=== PATIENT | female | born 1940 | race Caucasian/White ===

== ENCOUNTER 2021-11-12 21:14 | Observation (INO) | payer MEDICARE, OTHER ==
[2021-11-12 22:12] LABS: #Eosinphils 0.1 10x3/uL (0.0-0.5); #Monocytes 0.6 10x3/uL (0.0-1.1); #Neutrophils 4.5 10x3/uL (1.5-8.4); %Basophils 0.3 % (0.0-2.0); %Eosinophils 1.1 % (0.0-6.0); %Lymphocytes 15.6 % (18.0-47.0); %Neutrophils 73.8 % (40.0-75.0); Hemoglobin 12.6 g/dL (12.0-15.5); Mean Corpuscular HGB CONC 34.3 g/dL (32.0-36.0); Mean Corpuscular Hemoglobin 32.6 pg (27.0-33.0); Mean Corpuscular Volume 94.8 fl (81.6-98.3); Mean Platelet Volume 9.5 fl (7.4-10.4); Platelet Count 260 10x3/uL (150-450); RBC Distribution Width 13.3 % (11.5-14.5); Red Blood Cell (RBC) Count 3.87 10x6/uL (3.90-5.03); White Blood Cell (WBC) Count 6.1 10x3/uL (3.5-10.5)
[2021-11-12 22:20] LABS: ALT (SGPT) 29 U/L (8-55); AST (SGOT) 33 U/L (5-34); Albumin 4.5 g/dL (3.4-4.8); Alkaline Phosphatase 83 U/L (40-110); Anion Gap 19 mmol/L (10-20); BUN (Urea Nitrogen) 24 mg/dL (9.8-20.1); Bilirubin, Total 0.2 mg/dL (0.2-1.2); Calc. Creatinine Clearance 0 mL/min (70-130); Calcium 9.3 mg/dL (7.8-10.44); Carbon Dioxide 26 mmol/L (23-31); Chloride 95 mmol/L (98-107); Globulin 2.3 g/dL (2.4-3.5); Glucose 100 mg/dL (83-110); Protein, Total 6.8 g/dL (5.8-8.1); Sodium 136 mmol/L (136-145)
[2021-11-12 22:58] LABS: Bilirubin Neg (Negative); Blood, Urine 10 (Negative); Clarity Cloudy (Clear); Glucose, Urine (Dipstick) Normal (Negative); Ketone, Urine Negative (Negative); Leukocyte 500 (Negative); Nitrite Positive (Negative); Protein, Urine (Dipstick) 15 mg/dl (Neg-Trace); Urobilinogen Normal mg/dL (Less than 2); pH, Urine 6.5 (5.0-9.0)
[2021-11-12 23:04] LABS: Bacteria/HPF 4+ HPF (None Seen); RBC/HPF 0-3 HPF (0-3); Squamous Epithelial 0-3 HPF (0-3)
[2021-11-12] MEDS ORDERED: cefTRIAXone\\ROCEPHIN 1 GM VIAL ONE (23:56)
[2021-11-13] MEDS ORDERED: Calcium Carbonate 500 MG ChewTAB PO PRN (01:36)
[2021-11-13] MEDS ORDERED: Acetaminophen 325 MG TAB PO PRN (01:36)
[2021-11-13] MEDS ORDERED: Ondansetron ODT 4 MG TAB PO PRN (01:36)
[2021-11-13] MEDS ORDERED: Milk Of Magnesia 30 ML UDCUP PO PRN (01:36)
[2021-11-13] MEDS ORDERED: Ondansetron PF 4 MG/2 ML Vial IVP PRN (01:36)
[2021-11-13 01:49] LABS: Magnesium 1.8 mg/dL (1.6-2.6)
[2021-11-13 01:56] VITALS: BMI 16.2
[2021-11-13 01:56] LABS: Troponin I Less than 0.010 ng/mL (< 0.028)
[2021-11-13] MEDS: Sodium Chloride 0.9% 1,000 ML IV SCH ×2 (02:20→14:43)
[2021-11-13 02:57] LABS: Lactic Acid 0.8 mmol/L (0.5-2.2)
[2021-11-13 03:29] LABS: SARS-CoV-2 NAA Rapid Test Not Detected (NotDetected)
[2021-11-13 05:17] LABS: #Eosinphils 0.1 10x3/uL (0.0-0.5); #Monocytes 0.6 10x3/uL (0.0-1.1); #Neutrophils 2.7 10x3/uL (1.5-8.4); %Basophils 0.6 % (0.0-2.0); %Eosinophils 2.5 % (0.0-6.0); %Lymphocytes 26.5 % (18.0-47.0); %Monocytes 13.3 % (0.0-10.0); %Neutrophils 56.7 % (40.0-75.0); Hemoglobin 11.1 g/dL (12.0-15.5); Mean Corpuscular HGB CONC 33.7 g/dL (32.0-36.0); Mean Corpuscular Hemoglobin 32.1 pg (27.0-33.0); Mean Corpuscular Volume 95.1 fl (81.6-98.3); Mean Platelet Volume 9.2 fl (7.4-10.4); Platelet Count 214 10x3/uL (150-450); RBC Distribution Width 13.6 % (11.5-14.5); Red Blood Cell (RBC) Count 3.46 10x6/uL (3.90-5.03); White Blood Cell (WBC) Count 4.8 10x3/uL (3.5-10.5)
[2021-11-13 05:52] LABS: Anion Gap 12 mmol/L (10-20); BUN (Urea Nitrogen) 20 mg/dL (9.8-20.1); Calc. Creatinine Clearance 44 mL/min (70-130); Calcium 7.8 mg/dL (7.8-10.44); Carbon Dioxide 21 mmol/L (23-31); Chloride 108 mmol/L (98-107); Glucose 89 mg/dL (83-110); Potassium 4.2 mmol/L (3.5-5.1); Sodium 137 mmol/L (136-145)
[2021-11-13] MEDS ORDERED: BIOTIN 5 MG PO SCH (09:00)
[2021-11-13] MEDS ORDERED: Primidone 50 MG TAB PO SCH (09:00)
[2021-11-13] MEDS ORDERED: Gabapentin 100 MG CAP PO SCH (09:00)
[2021-11-13] MEDS ORDERED: Enoxaparin Sodium 30 MG/0.3 ML SYRINGE SC SCH (09:00)
[2021-11-13] MEDS ORDERED: Doxazosin 2 MG TAB PO SCH (09:00)
[2021-11-13 16:37] VITALS: BP 146/66; TEMP 98.3
[2021-11-13] MEDS ORDERED: Temazepam 15 MG CAP PO SCH (21:00)
[2021-11-13] MEDS ORDERED: Donepezil HCl 5 MG TAB PO SCH (21:00)
[2021-11-13] MEDS ORDERED: Gabapentin 300 MG CAP PO SCH (21:00)
[2021-11-13] MEDS ORDERED: Amitriptyline HCl 25 MG TAB PO SCH (21:00)
[2021-11-13] MEDS ORDERED: cefTRIAXone\\ROCEPHIN 1 GM in Sodium Chloride 0.9% 100 ML IVPB SCH (23:59)
== END 2021-11-13 18:15 | disposition home or self-care (01) ==
LOC: CSHERS 21:14 → CSHTELE 11-13 01:50
PROVIDERS: ADMIT Family Medicine; ATTEND Hospitalist
DX: R55 Syncope and collapse (principal); F03.90 Unspecified dementia, unspecified severity, without behavioral disturbance, psychotic disturbance, mood disturbance, and anxiety; Z79.899 Other long term (current) drug therapy; Z87.891 Personal history of nicotine dependence; N39.0 Urinary tract infection, site not specified; G25.0 Essential tremor; F51.04 Psychophysiologic insomnia; N18.4 Chronic kidney disease, stage 4 (severe); Z92.25 Personal history of immunosuppression therapy; L30.9 Dermatitis, unspecified; Z20.822 Contact with and (suspected) exposure to COVID-19
CPT/HCPCS: 80048; 80053; 83605 ×2; 83735; 84484 ×2; 85025 ×2; 87040; 87077; 87086; 87186; 93005 ×2; 93306; 96365; 97139; 99285; U0002; 36415; 81003; 81015; 93010; 96372; G0378; J0696; J1650; J7050

== ENCOUNTER 2022-01-27 18:38 | Inpatient (IN) | payer MEDICARE, OTHER ==
[~2022-01-27 18:38] MED LIST: Iopamidol 300 61% 100 ML VIAL FS ONE
[2022-01-27 19:32] LABS: #Monocytes 1.6 10x3/uL (0.0-1.1); #Neutrophils 10.2 10x3/uL (1.5-8.4); %Basophils 0.2 % (0.0-2.0); %Eosinophils 0.3 % (0.0-6.0); %Lymphocytes 5.9 % (18.0-47.0); %Monocytes 12.3 % (0.0-10.0); %Neutrophils 80.9 % (40.0-75.0); Hemoglobin 12.5 g/dL (12.0-15.5); Mean Corpuscular HGB CONC 34.9 g/dL (32.0-36.0); Mean Corpuscular Hemoglobin 31.9 pg (27.0-33.0); Mean Corpuscular Volume 91.3 fl (81.6-98.3); Mean Platelet Volume 9.6 fl (7.4-10.4); Platelet Count 272 10x3/uL (150-450); RBC Distribution Width 12.6 % (11.5-14.5); Red Blood Cell (RBC) Count 3.92 10x6/uL (3.90-5.03); White Blood Cell (WBC) Count 12.6 10x3/uL (3.5-10.5)
[2022-01-27 19:45] LABS: ALT (SGPT) 21 U/L (8-55); AST (SGOT) 29 U/L (5-34); Albumin 3.8 g/dL (3.4-4.8); Alkaline Phosphatase 68 U/L (40-110); Anion Gap 13 mmol/L (10-20); BUN (Urea Nitrogen) 15 mg/dL (9.8-20.1); Bilirubin, Total 0.4 mg/dL (0.2-1.2); Calc. Creatinine Clearance 0 mL/min (70-130); Calcium 8.6 mg/dL (7.8-10.44); Carbon Dioxide 29 mmol/L (23-31); Chloride 93 mmol/L (98-107); Estimated GFR 82; Globulin 1.8 g/dL (2.4-3.5); Glucose 118 mg/dL (83-110); Lipase 52 U/L (8-78); Potassium 3.7 mmol/L (3.5-5.1); Protein, Total 5.6 g/dL (5.8-8.1); Sodium 131 mmol/L (136-145)
[2022-01-27 19:57] LABS: Bilirubin Neg (Negative); Blood, Urine 250 (Negative); Clarity Slightly Cloudy (Clear); Glucose, Urine (Dipstick) Normal (Negative); Ketone, Urine 15 mg/dL (Negative); Leukocyte 500 (Negative); Nitrite Negative (Negative); Protein, Urine (Dipstick) 100 mg/dl (Neg-Trace); Specific Gravity, Urine 1.015 (1.002-1.036); Urobilinogen Normal mg/dL (Less than 2)
[2022-01-27 20:06] LABS: Bacteria/HPF 4+ HPF (None Seen); Mucous/LPF 1+ LPF (<2+); Squamous Epithelial 0-3 HPF (0-3); Transitional Epithelial 0-3 HPF (None Seen); WBC/HPF Greater than 50 HPF (0-3)
[2022-01-27] MEDS ORDERED: Cefepime 2 GM VIAL ONE (20:41)
[2022-01-27] MEDS ORDERED: Sodium Chloride 0.9% 1,000 ML IV SCH (23:45)
[2022-01-27] MEDS ORDERED: Guaifenesin DM 100-10/5 ML UDCUP PO PRN (23:46)
[2022-01-27] MEDS ORDERED: Senokot S 8.6-50 MG TAB PO PRN (23:46)
[2022-01-27] MEDS ORDERED: Ondansetron PF 4 MG/2 ML Vial IVP PRN (23:46)
[2022-01-27] MEDS ORDERED: Acetaminophen 325 MG TAB PO PRN (23:46)
[2022-01-27] MEDS ORDERED: Calcium Carbonate 500 MG ChewTAB PO PRN (23:46)
[2022-01-27] MEDS ORDERED: Primidone 50 MG TAB PO SCH (23:59)
[2022-01-27] MEDS ORDERED: Amitriptyline HCl 25 MG TAB PO SCH (23:59)
[2022-01-28] MEDS ORDERED: Potassium Chloride 20 MEQ TAB PO SCH (00:15)
[2022-01-28] MEDS ORDERED: Temazepam 15 MG CAP PO SCH ×2 (00:15→21:00)
[2022-01-28] MEDS ORDERED: Potassium Chloride 20 MEQ TAB ONE (00:31)
[2022-01-28] MEDS ORDERED: Metoprolol Tartrate 25 MG TAB ONE (01:26)
[2022-01-28 03:55] LABS: #Monocytes 1.3 10x3/uL (0.0-1.1); #Neutrophils 8.2 10x3/uL (1.5-8.4); %Basophils 0.3 % (0.0-2.0); %Eosinophils 0.2 % (0.0-6.0); %Lymphocytes 7.2 % (18.0-47.0); %Monocytes 12.6 % (0.0-10.0); %Neutrophils 79.4 % (40.0-75.0); Hemoglobin 11.4 g/dL (12.0-15.5); Mean Corpuscular HGB CONC 35.5 g/dL (32.0-36.0); Mean Corpuscular Hemoglobin 32.4 pg (27.0-33.0); Mean Corpuscular Volume 91.2 fl (81.6-98.3); Mean Platelet Volume 9.5 fl (7.4-10.4); Platelet Count 224 10x3/uL (150-450); RBC Distribution Width 12.6 % (11.5-14.5); Red Blood Cell (RBC) Count 3.52 10x6/uL (3.90-5.03); White Blood Cell (WBC) Count 10.3 10x3/uL (3.5-10.5)
[2022-01-28 03:57] LABS: Anion Gap 12 mmol/L (10-20); BUN (Urea Nitrogen) 10 mg/dL (9.8-20.1); Calc. Creatinine Clearance 0 mL/min (70-130); Calcium 8.1 mg/dL (7.8-10.44); Carbon Dioxide 24 mmol/L (23-31); Chloride 101 mmol/L (98-107); Estimated GFR 91; Glucose 108 mg/dL (83-110); Magnesium 1.8 mg/dL (1.6-2.6); Potassium 3.8 mmol/L (3.5-5.1); Sodium 133 mmol/L (136-145)
[2022-01-28] MEDS ORDERED: BIOTIN 5 MG PO SCH (09:00)
[2022-01-28] MEDS ORDERED: Thiamine 100 MG TAB ONE (09:25)
[2022-01-28] MEDS ORDERED: Enoxaparin Sodium 40 MG/0.4 ML SYRINGE ONE (09:26)
[2022-01-28] MEDS ORDERED: Folic Acid 1 MG TAB ONE (09:26)
[2022-01-28] MEDS ORDERED: cefTRIAXone\\ROCEPHIN 2 GM VIAL ONE ×2 (09:26→09:38)
[2022-01-28] MEDS: cefTRIAXone\\ROCEPHIN 2 GM in Sodium Chloride 0.9% 100 ML IVPB SCH (09:41)
[2022-01-28] MEDS: Enoxaparin Sodium 40 MG/0.4 ML SYRINGE SC SCH (09:41)
[2022-01-28] MEDS: Doxazosin 2 MG TAB PO SCH (09:41)
[2022-01-28] MEDS: Gabapentin 100 MG CAP PO SCH (09:42)
[2022-01-28] MEDS: Folic Acid 1 MG TAB PO SCH (09:42)
[2022-01-28] MEDS: pyridOXINE 50 MG (B6) TAB PO SCH (09:42)
[2022-01-28] MEDS: Thiamine 100 MG TAB PO SCH (09:42)
[2022-01-28 12:58] VITALS: BMI 18.0
[2022-01-28] MEDS: Primidone 50 MG TAB PO SCH ×2 (18:19→20:46)
[2022-01-28] MEDS ORDERED: Amitriptyline HCl 25 MG TAB PO SCH (21:00)
[2022-01-28] MEDS ORDERED: Gabapentin 300 MG CAP PO SCH (21:00)
[2022-01-28] MEDS ORDERED: Donepezil HCl 5 MG TAB PO SCH (21:00)
[2022-01-29 04:25] LABS: #Eosinphils 0.1 10x3/uL (0.0-0.5); #Monocytes 0.7 10x3/uL (0.0-1.1); #Neutrophils 4.1 10x3/uL (1.5-8.4); %Basophils 0.5 % (0.0-2.0); %Lymphocytes 17.9 % (18.0-47.0); %Monocytes 12.2 % (0.0-10.0); %Neutrophils 67.7 % (40.0-75.0); Hemoglobin 11.1 g/dL (12.0-15.5); Mean Corpuscular HGB CONC 33.9 g/dL (32.0-36.0); Mean Corpuscular Hemoglobin 31.8 pg (27.0-33.0); Mean Corpuscular Volume 93.7 fl (81.6-98.3); Mean Platelet Volume 9.5 fl (7.4-10.4); Platelet Count 245 10x3/uL (150-450); RBC Distribution Width 12.5 % (11.5-14.5); Red Blood Cell (RBC) Count 3.49 10x6/uL (3.90-5.03)
[2022-01-29 04:29] LABS: Anion Gap 10 mmol/L (10-20); BUN (Urea Nitrogen) 11 mg/dL (9.8-20.1); Calc. Creatinine Clearance 56 mL/min (70-130); Calcium 8.4 mg/dL (7.8-10.44); Carbon Dioxide 26 mmol/L (23-31); Chloride 102 mmol/L (98-107); Estimated GFR 91; Glucose 91 mg/dL (83-110); Sodium 134 mmol/L (136-145)
[2022-01-29] MEDS: cefTRIAXone\\ROCEPHIN 2 GM in Sodium Chloride 0.9% 100 ML IVPB SCH (09:37)
[2022-01-29] MEDS: Gabapentin 100 MG CAP PO SCH (09:37)
[2022-01-29] MEDS: Enoxaparin Sodium 40 MG/0.4 ML SYRINGE SC SCH (09:37)
[2022-01-29] MEDS: Folic Acid 1 MG TAB PO SCH (09:38)
[2022-01-29] MEDS: pyridOXINE 50 MG (B6) TAB PO SCH (09:38)
[2022-01-29] MEDS: Thiamine 100 MG TAB PO SCH (09:38)
[2022-01-29] MEDS: Doxazosin 2 MG TAB PO SCH (11:20)
[2022-01-29 15:44] VITALS: BP 136/64; TEMP 98.4
== END 2022-01-29 12:52 | disposition home or self-care (01) | DRG 871 ==
LOC: CSHERS 18:38 → CSHERHOLD 23:53 → CSHTELE 01-28 13:04
PROVIDERS: ADMIT Student in an Organized Health Care Education/Training Program; ATTEND Internal Medicine
DX: A41.51 Sepsis due to Escherichia coli [E. coli] (principal); G93.41 Metabolic encephalopathy; N10 Acute pyelonephritis; E87.1 Hypo-osmolality and hyponatremia; Z16.24 Resistance to multiple antibiotics; F03.90 Unspecified dementia, unspecified severity, without behavioral disturbance, psychotic disturbance, mood disturbance, and anxiety; B96.89 Other specified bacterial agents as the cause of diseases classified elsewhere; E86.0 Dehydration; F51.04 Psychophysiologic insomnia; N18.2 Chronic kidney disease, stage 2 (mild); G43.909 Migraine, unspecified, not intractable, without status migrainosus; G25.0 Essential tremor; Z20.822 Contact with and (suspected) exposure to COVID-19; Z79.899 Other long term (current) drug therapy; Z90.710 Acquired absence of both cervix and uterus; Z87.891 Personal history of nicotine dependence
CPT/HCPCS: 36415; 70450; 71045; 74177; 80048; 80053; 81003; 81015; 83605; 83690; 83735; 84145; 84484; 85025; 87040; 87077; 87086; 87149; 87186; 93005; 96365; 96366; 96367; J0692; J0696; J1650; J3370; J3490; J7050; Q9967; U0003; U0005

== ENCOUNTER 2022-11-13 14:59 | Emergency (ER) | payer MEDICARE, OTHER ==
[2022-11-13] MEDS ORDERED: Acetaminophen 325 MG TAB ONE (15:33)
[2022-11-13 15:46] LABS: #Eosinphils 0.2 10x3/uL (0.0-0.5); #Monocytes 0.5 10x3/uL (0.0-1.1); #Neutrophils 5.3 10x3/uL (1.5-8.4); %Basophils 0.2 % (0.0-2.0); %Eosinophils 3.6 % (0.0-6.0); %Lymphocytes 8.3 % (18.0-47.0); %Monocytes 7.5 % (0.0-10.0); %Neutrophils 80.1 % (40.0-75.0); Hemoglobin 14.5 g/dL (12.0-15.5); Mean Corpuscular HGB CONC 34.9 g/dL (32.0-36.0); Mean Corpuscular Hemoglobin 33.6 pg (27.0-33.0); Mean Corpuscular Volume 96.3 fl (81.6-98.3); Mean Platelet Volume 9.3 fl (7.4-10.4); Platelet Count 256 10x3/uL (150-450); RBC Distribution Width 12.6 % (11.5-14.5); Red Blood Cell (RBC) Count 4.31 10x6/uL (3.90-5.03); White Blood Cell (WBC) Count 6.7 10x3/uL (3.5-10.5)
[2022-11-13 15:50] LABS: ALT (SGPT) 23 U/L (8-55); AST (SGOT) 29 U/L (5-34); Albumin 4.5 g/dL (3.4-4.8); Alkaline Phosphatase 76 U/L (40-110); Anion Gap 17 mmol/L (10-20); BUN (Urea Nitrogen) 22 mg/dL (9.8-20.1); Bilirubin, Total 0.3 mg/dL (0.2-1.2); Calc. Creatinine Clearance 0 mL/min (70-130); Carbon Dioxide 24 mmol/L (23-31); Chloride 99 mmol/L (98-107); Estimated GFR 70; Globulin 2.4 g/dL (2.4-3.5); Glucose 141 mg/dL (83-110); Magnesium 2.2 mg/dL (1.6-2.6); Potassium 4.1 mmol/L (3.5-5.1); Protein, Total 6.9 g/dL (5.8-8.1); Sodium 136 mmol/L (136-145)
[2022-11-13 17:06] LABS: Bilirubin Neg (Negative); Blood, Urine 25 (Negative); Clarity Slightly Cloudy (Clear); Glucose, Urine (Dipstick) Normal (Negative); Ketone, Urine Negative (Negative); Leukocyte 500 (Negative); Nitrite Negative (Negative); Protein, Urine (Dipstick) 15 mg/dl (Neg-Trace); Urobilinogen Normal mg/dL (Less than 2)
[2022-11-13 17:14] LABS: Bacteria/HPF 4+ HPF (None Seen); RBC/HPF 0-3 HPF (0-3); Squamous Epithelial 0-3 HPF (0-3); WBC/HPF 21-50 HPF (0-3)
== END 2022-11-13 17:33 | disposition home or self-care (01) ==
LOC: CSHERS 14:59
DX: R60.0 Localized edema (principal)
CPT/HCPCS: 80053; 81003; 81015; 83735; 85025; 93005; 93010; 93970

== ENCOUNTER 2022-11-23 09:33 | Emergency (ER) | payer MEDICARE, OTHER ==
[2022-11-23 10:34] LABS: #Monocytes 0.7 10x3/uL (0.0-1.1); #Neutrophils 6.9 10x3/uL (1.5-8.4); %Basophils 0.5 % (0.0-2.0); %Eosinophils 0.2 % (0.0-6.0); %Lymphocytes 7.6 % (18.0-47.0); %Monocytes 8.1 % (0.0-10.0); %Neutrophils 83.2 % (40.0-75.0); Hemoglobin 14.5 g/dL (12.0-15.5); Mean Corpuscular HGB CONC 33.8 g/dL (32.0-36.0); Mean Corpuscular Hemoglobin 33.3 pg (27.0-33.0); Mean Corpuscular Volume 98.4 fl (81.6-98.3); Mean Platelet Volume 9.1 fl (7.4-10.4); Platelet Count 263 10x3/uL (150-450); RBC Distribution Width 12.7 % (11.5-14.5); Red Blood Cell (RBC) Count 4.36 10x6/uL (3.90-5.03); White Blood Cell (WBC) Count 8.3 10x3/uL (3.5-10.5)
[2022-11-23 10:35] LABS: Bilirubin Neg (Negative); Blood, Urine 25 (Negative); Clarity Slightly Cloudy (Clear); Glucose, Urine (Dipstick) Normal (Negative); Ketone, Urine Negative (Negative); Leukocyte 500 (Negative); Nitrite Positive (Negative); Protein, Urine (Dipstick) Negative (Neg-Trace); Urobilinogen Normal mg/dL (Less than 2)
[2022-11-23 10:49] LABS: ALT (SGPT) 40 U/L (8-55); AST (SGOT) 40 U/L (5-34); Albumin 4.4 g/dL (3.4-4.8); Alkaline Phosphatase 65 U/L (40-110); Anion Gap 16 mmol/L (10-20); BUN (Urea Nitrogen) 18 mg/dL (9.8-20.1); Bilirubin, Total 0.2 mg/dL (0.2-1.2); Calc. Creatinine Clearance 0 mL/min (70-130); Calcium 8.9 mg/dL (7.8-10.44); Carbon Dioxide 25 mmol/L (23-31); Chloride 96 mmol/L (98-107); Estimated GFR 87; Glucose 88 mg/dL (83-110); Lipase 59 U/L (8-78); Potassium 4.1 mmol/L (3.5-5.1); Protein, Total 6.4 g/dL (5.8-8.1); Sodium 133 mmol/L (136-145)
[2022-11-23 11:05] LABS: WBC/HPF 21-50 HPF (0-3)
[2022-11-23 11:06] LABS: Bacteria/HPF 4+ HPF (None Seen); Renal Epithelial 0-3 HPF (None Seen); Squamous Epithelial 0-3 HPF (0-3); Transitional Epithelial 0-3 HPF (None Seen)
[2022-11-23] MEDS ORDERED: cefTRIAXone (ROCEPHIN) 1 GM VIAL ONE (12:16)
[2022-11-23] MEDS ORDERED: Cephalexin 250 MG CAP ONE (12:41)
== END 2022-11-23 13:58 | disposition home or self-care (01) ==
LOC: CSHERS 09:33
DX: N30.01 Acute cystitis with hematuria (principal); R53.1 Weakness
CPT/HCPCS: 70450; 80053; 81003; 81015; 83690; 84484; 85025; 87077; 87086; 87186; 93005; J0696

== ENCOUNTER 2023-02-14 07:42 | Emergency (ER) | payer MEDICARE, OTHER ==
[2023-02-14 08:37] LABS: #Monocytes 0.8 10x3/uL (0.0-1.1); %Basophils 0.4 % (0.0-2.0); %Eosinophils 0.7 % (0.0-6.0); %Lymphocytes 15.8 % (18.0-47.0); %Monocytes 17.8 % (0.0-10.0); %Neutrophils 64.2 % (40.0-75.0); Hematocrit 36.3 % (34.9-44.5); Hemoglobin 12.6 g/dL (12.0-15.5); Mean Corpuscular HGB CONC 34.7 g/dL (32.0-36.0); Mean Corpuscular Hemoglobin 32.6 pg (27.0-33.0); Mean Corpuscular Volume 93.8 fl (81.6-98.3); Mean Platelet Volume 8.9 fl (7.4-10.4); Platelet Count 342 10x3/uL (150-450); RBC Distribution Width 12.2 % (11.5-14.5); Red Blood Cell (RBC) Count 3.87 10x6/uL (3.90-5.03); White Blood Cell (WBC) Count 4.6 10x3/uL (3.5-10.5)
[2023-02-14 08:52] LABS: ALT (SGPT) 27 U/L (8-55); AST (SGOT) 33 U/L (5-34); Albumin 3.8 g/dL (3.4-4.8); Alkaline Phosphatase 101 U/L (40-110); Anion Gap 16 mmol/L (10-20); BUN (Urea Nitrogen) 16 mg/dL (9.8-20.1); Bilirubin, Total 0.3 mg/dL (0.2-1.2); CK (CPK) 108 U/L (29-168); Calc. Creatinine Clearance 0 mL/min (70-130); Calcium 8.6 mg/dL (7.8-10.44); Carbon Dioxide 25 mmol/L (23-31); Chloride 97 mmol/L (98-107); Estimated GFR 88; Globulin 2.5 g/dL (2.4-3.5); Glucose 86 mg/dL (83-110); Magnesium 1.7 mg/dL (1.6-2.6); Potassium 3.9 mmol/L (3.5-5.1); Protein, Total 6.3 g/dL (5.8-8.1); Sodium 134 mmol/L (136-145)
[2023-02-14 09:07] LABS: Bilirubin Neg (Negative); Blood, Urine Negative (Negative); Clarity Clear (Clear); Glucose, Urine (Dipstick) Normal (Negative); Ketone, Urine Negative (Negative); Leukocyte 500 (Negative); Nitrite Negative (Negative); Protein, Urine (Dipstick) Negative (Neg-Trace); Urobilinogen Normal mg/dL (Less than 2)
[2023-02-14] MEDS ORDERED: cefTRIAXone (ROCEPHIN) 1 GM VIAL ONE (09:22)
[2023-02-14] MEDS ORDERED: Lidocaine 1% (PF) 30 ML VIAL ONE (09:23)
[2023-02-14 09:32] LABS: CAUTI Indications for Culture Alt mental st,lethar; RBC/HPF 0-3 HPF (0-3)
[2023-02-14 09:37] LABS: Bacteria/HPF 4+ HPF (None Seen); Squamous Epithelial 0-3 HPF (0-3)
[2023-02-14 09:39] LABS: Urine Culture Reflex Yes Yes
== END 2023-02-14 09:40 | disposition home or self-care (01) ==
LOC: CSHERS 07:42
DX: N39.0 Urinary tract infection, site not specified (principal)
CPT/HCPCS: 80053; 81001; 82550; 83735; 85025; 87077; 87086; 87186; 96360; 96372; J0696; J2001